=== PATIENT | female | born 1990 | race Caucasian/White ===

== ENCOUNTER 2018-08-03 11:02 | Outpatient (CLI) | payer OTHER ==
[2018-08-03 12:45] LABS: HGB - HEMOGLOBIN 10.9 g/dL (12.0-16.0); MEAN CORPUSCULAR HGB CONC 34.4 g/dL (32.0-36.0); MEAN CORPUSCULAR VOLUME 87.3 fL (81.0-99.0); MEAN PLATELET VOLUME 7.7 fL (7.9-10.8); RED BLOOD COUNT 3.61 10^6/uL (4.20-5.40); RED CELL DISTRIBUTION WIDTH 12.4 % (12.0-15.0); WHITE BLOOD COUNT 11.4 x10^3/uL (4.8-10.8)
[2018-08-04 12:11] LABS: HEPATITIS C ANTIBODY NON-REACTIVE (NON-REACTIVE)
== END 2018-08-03 11:03 | disposition home or self-care (01) ==
LOC: LAB 11:02
PROVIDERS: ATTEND Registered Nurse
DX: Z34.90 Encounter for supervision of normal pregnancy, unspecified, unspecified trimester (principal)
CPT/HCPCS: 36415; 82950; 85027; 86803; 86850

== ENCOUNTER 2018-08-06 07:38 | Outpatient (CLI) | payer OTHER | END 2018-08-06 07:39 | disposition home or self-care (01) | LOC: LAB 07:38 | PROVIDERS: ATTEND Registered Nurse | DX: O99.810 Abnormal glucose complicating pregnancy (principal) | CPT/HCPCS: 36415; 82951; 82952 ==

== ENCOUNTER 2018-09-23 08:00 | Outpatient (CLI) | payer OTHER | END 2018-09-23 23:59 | disposition home or self-care (01) | LOC: LAB.R 08:00 | PROVIDERS: ATTEND Registered Nurse | DX: R30.0 Dysuria (principal) | CPT/HCPCS: 87086; 87491; 87591 ==

== ENCOUNTER 2018-10-02 08:00 | Outpatient (CLI) | payer OTHER | END 2018-10-02 23:59 | disposition home or self-care (01) | LOC: LAB.R 08:00 | PROVIDERS: ATTEND Nurse Practitioner Obstetrics & Gynecology | DX: Z36.89 Encounter for other specified antenatal screening (principal); O98.213 Gonorrhea complicating pregnancy, third trimester; Z3A.00 Weeks of gestation of pregnancy not specified | CPT/HCPCS: 87491; 87591; 87797 ==

== ENCOUNTER 2018-10-09 08:00 | Outpatient (CLI) | payer OTHER | END 2018-10-09 23:59 | disposition home or self-care (01) | LOC: LAB.R 08:00 | PROVIDERS: ATTEND Registered Nurse | DX: O98.213 Gonorrhea complicating pregnancy, third trimester (principal) | CPT/HCPCS: 87491; 87591 ==

== ENCOUNTER 2018-10-12 09:58 | Outpatient (CLI) | payer OTHER ==
[2018-10-12 11:01] LABS: RUPTURE OF MEMBRANES PLUS NEGATIVE (NEGATIVE)
[2018-10-12 11:55] LABS: BILIRUBIN,URINE NEGATIVE (NEGATIVE); GLUCOSE, URINE (UA) NEGATIVE (NEGATIVE); KETONES,URINE (UA) NEGATIVE (NEGATIVE); LEUKOCYTE ESTERASE, URINE TRACE (NEGATIVE); NITRITE,URINE NEGATIVE (NEGATIVE); OCCULT BLOOD,URINE NEGATIVE (NEGATIVE); PH,URINE 7.5 PH (5.0-7.5); PROTEIN,URINE NEGATIVE (NEGATIVE); UROBILINOGEN,URINE 0.2 (NORMAL) E.U./dL (NORMAL)
[2018-10-12 11:56] LABS: BASOPHILS % (AUTO) 0.1 %; EOSINOPHILS % (AUTO) 0.3 %; HGB - HEMOGLOBIN 10.6 g/dL (12.0-16.0); LYMPHOCYTES # (AUTO) 2.1 10^3/uL (1.5-3.5); LYMPHOCYTES % (AUTO) 15.4 %; MEAN CORPUSCULAR HEMOGLOBIN 26.4 pg (27.0-31.0); MEAN CORPUSCULAR HGB CONC 33.1 g/dL (32.0-36.0); MEAN CORPUSCULAR VOLUME 79.9 fL (81.0-99.0); MEAN PLATELET VOLUME 7.6 fL (7.9-10.8); MONOCYTES # (AUTO) 0.9 10^3/uL (0.0-1.0); MONOCYTES % (AUTO) 6.9 %; NEUTROPHILS # (AUTO) 10.4 10^3/uL (1.5-6.6); NEUTROPHILS % (AUTO) 77.3 %; PLT - PLATELET COUNT 291 10^3/uL (130-450); RED BLOOD COUNT 4.01 10^6/uL (4.20-5.40); WHITE BLOOD COUNT 13.4 x10^3/uL (4.8-10.8)
[2018-10-12 11:56] LABS: CLARITY,URINE CLEAR (CLEAR)
[2018-10-12 12:01] LABS: BACTERIA,URINE Rare /HPF (None Seen); RBC,URINE None Seen /HPF (0-5); SQUAMOUS EPITHELIAL CELL,UR RARE Squamous (<= Few)
[2018-10-12 12:04] LABS: CREATININE 0.7 mg/dL (0.4-1.0)
[2018-10-12 12:07] LABS: URIC ACID 3.9 mg/dL (2.6-7.2)
[2018-10-12 12:08] VITALS: BP 134/88
[2018-10-12 13:06] LABS: CREATININE,URINE 28.9 mg/dL; TOTAL PROTEIN,URINE TIMED < 6 mg/dL
== END 2018-10-12 13:19 | disposition home or self-care (01) ==
LOC: WFO 09:58 → FBP 10:00 → WFO 13:19
PROVIDERS: ATTEND Nurse Practitioner Obstetrics & Gynecology
DX: O47.1 False labor at or after 37 completed weeks of gestation (principal); Z3A.37 37 weeks gestation of pregnancy
CPT/HCPCS: 36415; 59025; 81001; 82565; 82570; 83615; 84112; 84156; 84450; 84550; 85025; 87086

== ENCOUNTER 2018-10-20 02:39 | Inpatient (IN) | payer OTHER ==
[2018-10-20] MEDS ORDERED: fentaNYL 100 MCG/2 ML VIAL IVP PRN (05:14)
[2018-10-20] MEDS ORDERED: SODIUM CHLORIDE FLUSH 0.9% 10 ML SYRINGE IVP PRN (05:14)
[2018-10-20] MEDS ORDERED: ONDANSETRON 4 MG/2 ML VIAL IVP PRN ×2 (05:14→08:48)
[2018-10-20] MEDS ORDERED: OXYTOCIN/SODIUM CHLORIDE 500 ML IV SCH (06:00)
[2018-10-20 06:54] LABS: BASOPHILS % (AUTO) 0.2 %; EOSINOPHILS % (AUTO) 0.1 %; HGB - HEMOGLOBIN 9.8 g/dL (12.0-16.0); LYMPHOCYTES # (AUTO) 2.1 10^3/uL (1.5-3.5); LYMPHOCYTES % (AUTO) 12.5 %; MEAN CORPUSCULAR HGB CONC 32.7 g/dL (32.0-36.0); MEAN CORPUSCULAR VOLUME 79.4 fL (81.0-99.0); MEAN PLATELET VOLUME 7.8 fL (7.9-10.8); MONOCYTES # (AUTO) 1.1 10^3/uL (0.0-1.0); MONOCYTES % (AUTO) 6.7 %; NEUTROPHILS # (AUTO) 13.5 10^3/uL (1.5-6.6); NEUTROPHILS % (AUTO) 80.5 %; PLT - PLATELET COUNT 258 10^3/uL (130-450); RED BLOOD COUNT 3.76 10^6/uL (4.20-5.40); RED CELL DISTRIBUTION WIDTH 14.3 % (12.0-15.0); WHITE BLOOD COUNT 16.7 x10^3/uL (4.8-10.8)
[2018-10-20] MEDS: LACTATED RINGERS 1,000 ML IV SCH ×2 (07:48→14:09)
--- NOTE | 2018-10-20 07:57 | ANESTHESIA ---
Pre-Anesthesia VS, & Labs - Diagnosis desires labor analgesia - Procedure Labor epidural Vital Signs: Temp Pulse Resp BP Pulse Ox 36.8 C 75 20 134/82 H 100 10/20/18 03:22 10/20/18 05:08 10/20/18 05:08 10/20/18 05:08 10/20/18 05:08 Height 6 ft 1 in Weight (kg) 111.584 kg - NPO Other (patient instructed to be clear liquids from now till delivery) - Is Patient ?: Yes - Lab Results Current Lab Results: Laboratory Tests 10/20/18 06:14: WBC 16.7 H, RBC 3.76 L, Hgb 9.8 L, Hct 29.9 L, MCV 79.4 L, MCH 26.0 L, MCHC 32.7, RDW 14.3, Plt Count 258, MPV 7.8 L, Neut # (Auto) 13.5 H, Lymph # (Auto) 2.1, [place] # (Auto) 1.1 H, Eos # (Auto) 0.0, Baso # (Auto) 0.0, Absolute Nucleated RBC 0.00, Nucleated RBC % 0.0 Fish Bones: 10/20/18 06:14 Home Medications and Allergies Active Medications Acetaminophen (Tylenol) 650 mg PO Q6H HOSSEIN Fentanyl (Fentanyl) 50 mcg IVP Q1H PRN PRN Reason: PAIN Last Admin: 10/20/18 06:42 Dose: 50 mcg Lactated Ringer's (Lr) 1,000 mls @ 150 mls/hr IV .Q6H40M HOSSEIN Last Admin: 10/20/18 07:48 Dose: 150 mls/hr Oxytocin/Sodium Chloride (Pitocin/Sodium Chloride) 500 mls @ 1 mls/hr IV TITR HOSSEIN; Protocol Ondansetron HCl (Zofran Inj) 4 mg IVP Q4H PRN PRN Reason: Nausea / Vomiting Sodium Chloride (Normal Saline Flush 0.9%) 10 ml IVP PRN PRN PRN Reason: NEEDED PER PROVIDER ORDERS Sodium Chloride (Normal Saline Flush 0.9%) 10 ml IVP 0100,0900,1700 [facility] Allergies/Adverse Reactions: Allergies Allergy/AdvReac Type Severity Reaction Status Date / Time Penicillins Allergy Hives Verified 10/12/18 10:19 Anes History & Medical History - Anesthetic History Anesthesia Complications: reports: No previous complications - Medical History Cardiovascular: reports: None Pulmonary: reports: None Gastrointestinal: reports: GERD Neuro: reports: None Musculoskeletal: reports: None Exam General: Alert Dental: WNL Mouth Opening: Greater than 4 Fingerbreadths Neck Mobility: Normal Mallampati classification: II Thyromental Distance: greater than 6 cm Mental/Cognitive Status: Alert/Oriented X3 Plan Anesthesia Type: Epidural Consent for Procedure(s) Verified and Reviewed: Yes Code Status: Attempt Resuscitation ASA classification: 2-Mild systemic disease Is this case an emergency?: No
[2018-10-20] MEDS ORDERED: ROPIVACAINE 0.2% PF 20 ML AMPULE ONE (08:36)
[2018-10-20] MEDS ORDERED: fent/BUPIV 2 MCG/0.125% 250 ML EP ONE (08:37)
[2018-10-20] MEDS ORDERED: NALOXONE 0.4 MG/ML VIAL IVP PRN (08:48)
[2018-10-20] MEDS ORDERED: ePHEDrine 50 MG/ML VIAL IVP PRN (08:48)
[2018-10-20] MEDS ORDERED: METOCLOPRAMIDE 10 MG/2 ML VIAL IVP PRN (08:48)
[2018-10-20] MEDS ORDERED: fent/BUPIV 2 MCG/0.125% 250 ML EP PRN (08:48)
[2018-10-20] MEDS ORDERED: diphenhydrAMINE INJ 50 MG/ML VIAL IVP PRN (08:48)
[2018-10-20] MEDS ORDERED: NALBUPHINE 10 MG/ML AMP IVP PRN (08:48)
[2018-10-20] MEDS ORDERED: LACTATED RINGERS 500 ML IV ONE (08:48)
[2018-10-20] MEDS ORDERED: SODIUM CHLORIDE FLUSH 0.9% 10 ML SYRINGE IVP SCH (09:00)
--- NOTE | 2018-10-20 09:54 | HISTORY & PHYSICAL EXAMINATION ---
Admit History - Visit Reason Visit Reason: Contractions - : 3 Parity: 0 Premature: 0 Ectopic: 0 : 0 Care: positive: Valentino CORNELL (transfer of care @ 28 weeks' gestation) Risk/History: positive: None Complications This : positive: Other (gonorrhea) Smoking Status: Never smoker - Mother's Labs Mother's Blood Type: positive: A Mother's RH: positive: Positive GBS: positive: Group B Step Negative Rubella Status: positive: Immune Meds/Allgy - Allergies Allergies/Adverse Reactions: Allergies Allergy/AdvReac Type Severity Reaction Status Date / Time Penicillins Allergy Hives Verified 10/12/18 10:19 Review of Systems - Constitutional Constitutional: denies: Fatigue, Fever, Chills - Eyes Eyes: denies: Blurred vision, Spots in vision, Dipolpia - Cardiovascular Cariovascular: denies: Irregular heart rate, Palpitations, Chest pain, Edema - Respiratory Respiratory: denies: Cough, SOB at rest, SOB with exertion - Gastrointestinal Gastrointestinal: reports: Abdominal pain. denies: Constipation, Diarrhea, Nausea, Vomiting, Reflux/heartburn - Genitourinary Genitourinary: reports: Frequency. denies: Dysuria, Urgency - Musculoskeletal Musculoskeletal: reports: Back pain. denies: Muscle pain, Muscle aches - Integumentary Integumentary: denies: Rash, Pruritis, Lesions - Neurological Neurological: denies: General weakness, Focal weakness, Headache - Psychiatric Psychiatric: denies: Depression, Anxiety - All Other Systems All Other Systems: reports: Reviewed and negative Physical - Abdominal Exam Vital Signs: Temp Pulse Resp BP Pulse Ox 36.8 C 75 20 134/82 H 100 10/20/18 03:22 10/20/18 05:08 10/20/18 05:08 10/20/18 05:08 10/20/18 05:08 Contraction Frequency (min/apart): 2-3 minutes Contraction Intensity: positive: Moderate Uterine Resting Tone: positive: Soft - Monitoring Heart Rate Baseline: 135 Strip Review: positive: Category I - Presentation Presentation: positive: Vertex - Vaginal Exam Membranes: positive: Membranes intact Dilation (in cm): 5 Effacement (%): 100 Station: positive: -1 Cervical Position: positive: Anterior - Speculum Exam Speculum Exam Performed: positive: No Findings: negative: Gross leak - Other Notes Labor Progress Note/Additional Text: Breonna Urbina is a 27 y/o @ 38w5d by first trimester US who received consistent care t/o the course of her . She had an elevated 1-hr gtt @ 27 weeks' gestation, which was followed by a normal 3-hr gtt. Her screening labs were all otherwise WNL. She presented w/ a complaint of unusual vaginal discharge & dysuria @ 33 weeks' gestation & was screened for and diagnosed with gonorrhea niessiera @ that time. She received appropriate and adequate treatment for this bacterium & subsequently had negative COLLIN w/ repeated negative screening thereafter. She was screened for all other STIs in the first trimester and again in he 3rd trimester & her screening results were negative. The gonoccocal infection was the result of sexual contact w/ a new partner, which was isolated to a one-time event and did not recur. She presents today w/ strong uterine contractions w/ onset at 0100, progressively intensifying @ 0300. She wa seen in OB triage for an evaluation, where she was found to change her cervix by RN exam from 2cm to 4cm. She shortly thereafter requested and received epidural placement for management of her pain & is now comfortable & continuing to have spontaneous cervical change. PMH: Unremarkable PSH: D&C x2 under general anesthesia OBHx: SAB 1st trimester w/ D&C, no complications; TAB 1st trimester w/ D&C, no complications. 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; denies ETOH/tobacco/drugs; denies social stressors, good family support FamHx: Non-contributory PE: GEN: AAOx3 NAD [place] gravid female HEENT: grossly normocephalic, atraumatic RESP: cta b/l t/o CARDIAC: rrr nls1s2, no murmur ABD: gravid, NT, lie longitudinal, presentation cephalice, EFW 8# : No lesions, no exudate, SVE: 5/100/-1 anterior, BBOW MS: FROM t/o w/o deformity/erythema/edema SKIN: warm, well-perfused, c/d/i, no lesions, +tattooing NEURO: No focal deficit PSYCH: pleasantly conversant w/ normal mood & affect Plan for Labor - Plan For Labor I expect patient to be DC'd or transferred within 96 hours.: Yes Plan for Labor: 1. Reassess cervical status x4 hours, earlier PRN 2. Encouraged maternal rest, as she did not sleep overnight 3. Insert ferguson catheter to remain indwelling until 2nd stage labor 4. Reviewed plan of care w/ pt, friend & RN team @ bedside; all in agreement, without concerns.
[2018-10-20] MEDS ORDERED: miSOPROStol 200 MCG TABLET ONE (10:20)
[2018-10-20] MEDS ORDERED: LIDOCAINE-MPF 1% 30 ML VIAL ONE (10:20)
--- NOTE | 2018-10-20 16:40 | PROVIDER PROGRESS NOTE ---
Labor Progress Note - Uterine Monitoring Uterine Monitoring Mode: positive: External toco Contraction Frequency (min/apart): 2-5 Contraction Intensity: positive: Moderate to strong Uterine Resting Tone: positive: Soft - Monitoring Monitor Mode: positive: External ultrasound Heart Rate Baseline: 135 Heart Rate Variability: positive: Moderate (6-25 bmp) Accelerations: positive: Present, 15x15 Decelerations: positive: None Strip Review: positive: Category I - Vaginal Exam Dilation (in cm): 8 Effacement (%): 90 Station: -1 Cervical Position: Anterior - Labor Progress Note Labor Progress Note/Additional Text: S: Breonna is uncomfortable w/ her epidural in place; she is having significant discomfort on her R side only & feels very numb on her L side; mother & friend @ bedside, involved & supportive O: AAOx3, NAD [place] gravid female VSS EFM: BL 135bpm, +accels, no decels, mod dylon TOCO: UCs q2-5 minutes x 60-80 seconds, palp moderate SVE: 8/90/-1 BBOW AROMed for moderate CAF A: 27 y/o @ 38w5d by first trimester US, active spontaneous labor Progressive cervical change GBS negative, AROMed for CAF FHTs cat I Inadequate pain control w/ epidural anesthesia P: 1. Reviewed labor physiology, anticipatory guidance 2. Reviewed optimal maternal positioning to facilitate rotation & descent 3. Reassess cervical status x2-4 hours, earlier PRN 4. Anesthesia to evaluate pt to improve comfort 5. Reviewed plan of care w/ pt, family & RN team @ bedside; all in agreement, without concerns
[2018-10-20] MEDS ORDERED: OXYTOCIN 10 UNIT/ML VIAL IM ONE (17:56)
[2018-10-20] MEDS ORDERED: MAGNESIUM HYDROXIDE 2,400 MG/30 ML UDC PO PRN (17:56)
[2018-10-20] MEDS ORDERED: HYDROCORTISONE 1% CREAM 28 GM TUBE PR PRN (17:56)
[2018-10-20] MEDS ORDERED: WITCH HAZEL/GLYCERIN 1 EACH MED..PAD TOP PRN (17:56)
--- NOTE | 2018-10-20 18:04 | DELIVERY NOTE ---
Delivery Note - Labor Labor: positive: Spontaneous - Delivery Method Delivery Method: positive: Spontaneous vaginal delivery - Presentation Presentation: positive: Vertex, CHEMO - right occiput anterior - Nuchal Cord Nuchal Cord: positive: None - Anesthetic Anesthetic Type: - Amniotic Fluid Description Amniotic Fluid Description: positive: Clear - Episiotomy Type Episiotomy Type: positive: None - Laceration Laceration: positive: Vaginal - Suture Suture Type: positive: Vicryl Suture Size: positive: 2-0 - Delivery Outcome Delivery Outcome: positive: Livebirth - [place]: positive: Placed in direct skin contact with mother, Stimulated, Warmed, [place] used [place] sex: positive: Male - Cord Cord: positive: 3 vessels - Placenta Placenta: positive: Intact, Spontaneous - Estimated Blood Loss Estimated Blood Loss (in cc): 300 - Post Delivery Events Post Delivery Events: positive: No post delivery events - Delivery Comments (Free Text/Narrative) Delivery Comments (Free Text/Narrative): Breonna Urbina is a 27 y/o [id number] who presented in spontaneous active labor @ 38w5d. She received epidural anesthesia for pain management. She was electronically monitored t/o & FHTs were consistently cat I. She underwent AROM for CAF & progressed spontaneously to complete dilatation @ 1715, for a total 1st stage duration of 16 hours. She pushed w/ excellent expulsive effort & direction to viable male in CHEMO position over intact perineum @ 1743, for a total 2nd stage duration of 28 minutes. Infant vigorous w/ spontaneous, lusty cry. Placed to maternal abd for drying/stim. Delayed cord clamping until cessation of pulsation, then cord clamped x2 by CNM, cut by pt's mother; 3VC noted, cord blood obtained. Active management of the 3rd stage w/ Pitocin in IV fluids. Placenta del spont & intact, Alison, @ 1745, for a total 3rd stage duration of 2 minutes. FF @ U. Vagina & perineum inspected & 1st degree vaginal laceration noted; repaired under epidural anesthesia w/ 2 stitches of 2- 0 vicryl. Hemostatic & well-approximated. EBL 300mL. Mother & stable, planning to breastfeed. Infant nuzzling @ breast w/in 10 minutes of delivery.
[2018-10-20] MEDS: ACETAMINOPHEN 325 MG TABLET PO SCH (19:23)
[2018-10-20] MEDS: IBUPROFEN 800 MG TABLET PO SCH (19:23)
[2018-10-20] MEDS: DOCUSATE SODIUM 100 MG CAPSULE PO SCH (20:57)
[2018-10-21] MEDS: ACETAMINOPHEN 325 MG TABLET PO SCH ×4 (01:04→20:12)
[2018-10-21] MEDS: IBUPROFEN 800 MG TABLET PO SCH ×4 (01:04→20:12)
[2018-10-21] MEDS: DOCUSATE SODIUM 100 MG CAPSULE PO SCH ×2 (09:07→22:03)
--- NOTE | 2018-10-21 11:07 | PROVIDER PROGRESS NOTE ---
Subjective - Prog Note Date Prog Note Date: 10/21/18 Prog Note Time: 08:45 - Subjective Pt reports feeling: Improved Subjective: Breonna is doing well. She is ambulating & voiding w/o difficulty or discomfort. She denies incontinence. She is passing flatus & tolerating a regular diet. She reports adequate pain control w/ non-opioid analgesia. She is well w/ excellent sustained latch, although infant is modera tely sleepy. She feels tired but is otherwise doing well. Her mother intends to stay for another 2 weeks to assist her. Objective - Vital Signs/Intake & Output Reviewed Vital Signs: Yes Vital Signs: Vital Signs x48h Temp Pulse Resp BP BP Pulse Ox 10/21/18 07:00 37 C 71 18 121/73 10/21/18 04:08 36.9 C 65 16 102/52 L 100 Intake & Output: Intake & Output 10/18/18 10/19/18 10/20/18 10/21/18 23:59 23:59 23:59 23:59 Intake Total 2632.5 Output Total 550 0 Balance 2082.5 0 - Objective General Appearance: positive: No acute distress, Alert Eyes Bilateral: positive: Normal inspection, EOMI Respiratory: positive: Chest non-tender, No respiratory distress, Breath sounds nml Cardiovascular: positive: Regular rate & rhythm, No murmur Abdomen: positive: Non-tender, No distention, Other (FF U-2) Skin: positive: Color nml, No rash, Warm, Dry Extremities: positive: Non-tender, Full ROM, No pedal edema. negative: Calf tenderness, Nicola's sign/cords Neurologic/Psychiatric: positive: Oriented x3, CN's nml (2-12), Motor nml, Sensation nml, Mood/affect nml - Lab Results Fish Bones: 10/20/18 06:14 ABX Reporting Has patient been on IV antibiotics over the past 48 hours?: No Assessment/Plan - Problem List (1) (normal spontaneous vaginal delivery) Impression: 27 y/o [id number] s/p w/ vaginal laceration 10/20/2018, PPD #1, recovering well Normal uterine involution Minimal vaginal bleeding well Adequate pain control w/ non-opioid analgesia P: 1. continue routine pp care 2. support provided & to continue in ongoing fashion 3. Anticipate d/c home PPD#2
[2018-10-22] MEDS: IBUPROFEN 800 MG TABLET PO SCH ×3 (02:01→14:25)
[2018-10-22] MEDS: ACETAMINOPHEN 325 MG TABLET PO SCH ×3 (02:07→14:25)
[2018-10-22] MEDS: DOCUSATE SODIUM 100 MG CAPSULE PO SCH (08:07)
[2018-10-22 08:26] VITALS: BP 131/66
--- NOTE | 2018-10-22 09:29 | Discharge Plan ---
Discharge Plan Disposition: 01 Home, Self Care Condition: Good Diet: Regular Activity Restrictions: pelvic rest x6 weeks Shower Restrictions: No (No tub baths) Driving Restrictions: No Weight Bearing: Full Weight Instruction Topics: Vaginal After, Breastfeed How To, Exercises Kegel Additional Instructions or Follow Up instructions: x1 week w/ Abdirizak Carrasco CNM, aylin PRN No Smoking: If you smoke, Please STOP! Call for help. Follow-up with: Abdirizak Carrasoc CNM, NESSA [Provider Admit Priv/Credential] -
--- NOTE | 2018-10-22 09:31 | DISCHARGE SUMMARY ---
"Discharge Summary Admit Date: 10/20/18 Discharge Date: 10/22/18 Discharging Provider: stevo Code Status: Attempt Resuscitation Condition at Discharge: Good Discharge Disposition: 01 Home, Self Care Discharge Facility Name: [facility] - DIAGNOSES Admission Diagnoses: active spontaneous labor Discharge Diagnoses with Status of Each Condition: - HPI History of Present Illness: Breonna Urbina is a [id number] who presented @ 38w5d in active, spontaneous labor. She received epidural anesthesia for pain management & underwent AROM for CAF. She progressed w/o further intervention to complete dilatation & delivered a viable male infant vaginally w/ a vaginal laceration that was repaired w/ 2 stitches under epidural anesthesia w/o complication. - CONSULTS | PROCEDURES Consultations: anesthesia Procedures: epidural placement AROM repair of vaginal laceration - ALLERGIES Allergies/Adverse Reactions: Allergies Allergy/AdvReac Type Severity Reaction Status Date / Time Penicillins Allergy Hives Verified 10/12/18 10:19 - MEDICATIONS Home Medications: Ambulatory Orders Medication Instructions Recorded Confirmed Ibuprofen [Motrin] 800 mg PO Q6H tablet 10/22/18 - PHYSICAL EXAM AT DISCHARGE General Appearance: positive: No acute distress, Alert Respiratory: positive: Chest non-tender, No respiratory distress Cardiovascular: positive: Regular rate & rhythm, No murmur Abdomen: positive: Non-tender, No distention, Other (FF @ U-3) Skin: positive: Color nml, No rash, Warm, Dry Extremities: positive: Non-tender, Full ROM, Nml appearance, No pedal edema. negative: Calf tenderness, Nicola's sign/cords Neurologic/Psychiatric: positive: Oriented x3, CN's nml (2-12), Motor nml, Sensation nml, Mood/affect nml Physical Exam Other/Comments: Breast b/l s, nt; nipples b/l intact & everted; colostrum readily expressible - LABS Result Diagrams: 10/20/18 06:14 - FOLLOW UP Follow Up: x1 week w/ Abdirizak Carrasco CNM, earlier PRN - TIME SPENT Time Spent in Discharge (Minutes): 15"
[2018-10-22] MEDS ORDERED: MEASLES,MUMPS & RUBELLA VACC 0.5 ML VIAL SUBQ ONE (13:26)
--- NOTE | 2018-10-22 15:47 | Labor Flowsheet ---
Labor Flowsheet Datetime Report Generated by CPN: 10/22/2018 15:47 Datetime: 10/22/2018 08:19 VITAL SIGNS NBP Sys/Pebbles/Mean (mmHg): 131 : 66 : 82 Pulse: 68 LaborFlag: Labor Datetime: 10/21/2018 04:08 SpO2 (%): 100 Datetime: 10/20/2018 17:43 Stage 2 Comments: 1743 Datetime: 10/20/2018 17:32 STAGE 2 Pushing Position: Pushing with Contractions Pushing Progress: Descent with Pushing; Pushing Effectively with Contractions Datetime: 10/20/2018 17:29 UTERINE ACTIVITY Monitor Mode: Palpation Frequency (min): 2.5 Quality: Strong Pattern: Normal: <= 5 Contractions in 10 Minutes Resting Tone (Palpate): Relaxed ASSESSMENT A Monitor Mode: External US FHR Baseline Rate : 135 FHR Baseline Changes: No Baseline Change Variability: Minimal - Undetectable to <=5 bpm Accelerations: 15X15 Decelerations: Variable Category: Category II Comments: descent with pushing Datetime: 10/20/2018 17:27 I/O Interventions: Brown Discontinued Datetime: 10/20/2018 17:26 Membrane Comments: Provider here for delivery. Pushing restarted Datetime: 10/20/2018 17:10 VAGINAL EXAM Dilatation (cm): 10.0 Station: 1 Exam by: elizalde Vaginal Exam Comments: Provider notified of status. Will begin pushing Datetime: 10/20/2018 16:59 Temperature (C): 38.1 Duration (sec): 40 Pitocin Checklist: At Least 1 Acceleration of 15 bpm x 15 Seconds in 30 Minutes or Adequate Variabi lity TEACHING Instructional Method: Verbal Plan of Care: Plan of Care Discussed; Vaginal Delivery Labor/Induction: Pushing Methods COMMUNICATION Communication: RN Reviewed Strip Datetime: 10/20/2018 16:45 Monitor Interventions for UA: Vayas Adjusted Datetime: 10/20/2018 16:29 Patient Position/Activity: Left Extreme Datetime: 10/20/2018 16:18 PAIN Pain Scale: 5 Pain Presence: Intermittent Pain Type: Contraction Pain Relief Measures: Epidural Given Pain Coping: Breathing Through Contractions Datetime: 10/20/2018 16:15 Contraction Comments: Unable to trace. Pt on peanut ball on r side Datetime: 10/20/2018 16:14 Oxygen Method: Room Air Datetime: 10/20/2018 15:52 Pain Location: Abdomen Pain Assessment Comments: Anesthesia at bedside Vaginal Bleeding: None Cervix, Consistency: Soft Datetime: 10/20/2018 15:48 ANESTHESIA Anesthesia Plans: Epidural Epidural Procedure Other: Redose Anesthesia Level Check: T10- Umbilicus Datetime: 10/20/2018 15:31 Anesthesia Comments: Pump settings adjusting to 12 with 60ml bolus Datetime: 10/20/2018 15:30 Provider Notified (Name): Abdirizak Carrasco CNM Communication Comments: CNM helped RN locate labs from transfer records in the office charting Datetime: 10/20/2018 15:19 Effacement (%): 90 Membrane Status: Ruptured Membranes Ruptured Date/Time: 10/20/2018 15:19 Membranes Rupture Method: Artificial Amniotic Fluid Color: Clear Amniotic Fluid Amount: Moderate Amniotic Fluid Odor: None Cervix, Position: Anterior Datetime: 10/20/2018 14:11 PATIENT CARE IV/Blood Work: New IV Bag Hung; IV Bag Number @ 3 Datetime: 10/20/2018 13:26 Procedures: Sterile Vag Exam Datetime: 10/20/2018 12:30 Stage of : Labor Datetime: 10/20/2018 11:39 Respirations: 18 Datetime: 10/20/2018 11:14 Temperature Route: Oral Datetime: 10/20/2018 10:57 MATERNAL ASSESSMENT Headache: Denies Nausea/Vomiting: Denies RUQ Epigastric Pain: Denies Datetime: 10/20/2018 09:43 Hygiene: Ami Care Datetime: 10/20/2018 08:19 Epidural Procedure: Loading Dose Datetime: 10/20/2018 08:00 Comfort Measures: Breathing/Relaxation Datetime: 10/20/2018 07:56 PROCEDURE TIME OUT Procedure Verify: Correct Patient Identity; Accurate Procedure Consent Form; Agreement on Procedure to be Done; Correct Patient Position Epidural Positioning: Sitting Datetime: 10/20/2018 07:38 Patient Care Comments: Assist to BR Datetime: 10/20/2018 06:42 MEDICATIONS Analgesics/Sedatives: Fentanyl (mcg) @ Medication Comments: Fentanyl 50 mcg at 0642 IV
== END 2018-10-22 15:45 | disposition home or self-care (01) | DRG 807 ==
LOC: WFO 02:39 → FBP 02:40 → WFO 05:10 → FBP 05:15
PROVIDERS: ADMIT Registered Nurse; ATTEND Registered Nurse
PROC: 10E0XZZ Delivery of Products of Conception, External Approach (ICD-10-PCS; principal; 2018-10-20)
PROC: 10907ZC Drainage of Amniotic Fluid, Therapeutic from Products of Conception, Via Natural or Artificial Opening (ICD-10-PCS; 2018-10-20)
PROC: 0HQ9XZZ Repair Perineum Skin, External Approach (ICD-10-PCS; 2018-10-20)
DX: O70.0 First degree perineal laceration during delivery (principal); Z37.0 Single live birth; Z3A.38 38 weeks gestation of pregnancy; Z86.19 Personal history of other infectious and parasitic diseases
CPT/HCPCS: 85025; 99213

== ENCOUNTER 2019-02-13 00:55 | Outpatient (CLI) | payer OTHER | END 2019-02-13 00:56 | disposition critical access hospital (66) | LOC: EMS 00:55 | PROVIDERS: ATTEND Surgery | DX: R07.9 Chest pain, unspecified (principal) | CPT/HCPCS: A0425; A0427 ==

== ENCOUNTER 2019-02-13 01:12 | Emergency (ER) | payer OTHER ==
--- NOTE | 2019-02-13 01:20 | ED Physician Documentation ---
PD HPI CHEST PAIN - Stated complaint Stated Complaint: CP - Chief complaint Chief Complaint: Cardiac - History obtained from History obtained from: Patient - History of Present Illness Timing - onset: How many hours ago (7) Timing - onset during: Rest Timing - details: Still present Pain level max: 4 Pain level now: 2 Quality: Sharp Location: Substernal, Left chest Radiation: No: Jaw, Neck, Back, Abdominal, Left upper extremity, Right upper extremity Improved by: Nothing Worsened by: Inspiration Associated symptoms: No: Shortness of air, Diaphoresis, Nausea, Vomiting, Feeling faint / dizzy, General Weakness, Palpitations, Cough Similar symptoms before: Has not had sx before Recently seen: Not recently seen - Additional information Additional information: no recent travel or surgery. Review of Systems Constitutional: denies: Fever, Chills Nose: reports: Rhinorrhea / runny nose Respiratory: reports: Cough. denies: Dyspnea, Wheezing : denies: Dysuria Skin: denies: Rash, Abrasion (s) Musculoskeletal: denies: Neck pain, Back pain PD PAST MEDICAL HISTORY - Past Medical History Cardiovascular: None Respiratory: None Neuro: None GI: GERD Musculoskeletal: None - Present Medications Home Medications: Ambulatory Orders Medication Instructions Recorded Confirmed Meloxicam [Mobic] 15 mg PO DAILY PRN #20 tablet 02/13/19 - Allergies Allergies/Adverse Reactions: Allergies Allergy/AdvReac Type Severity Reaction Status Date / Time Penicillins Allergy Hives Verified 02/13/19 01:16 - Social History Smoking Status: Never smoker PD ED PE NORMAL - Vitals Vital signs reviewed: Yes - General General: Alert and oriented X 3, No acute distress, Well developed/nourished - HEENT HEENT: PERRL, Ears normal, Moist mucous membranes, Pharynx benign - Neck Neck: Supple, no meningeal sign - Cardiac Cardiac: RRR, No murmur, Strong equal pulses - Respiratory Respiratory: No respiratory distress, Clear bilaterally - Abdomen Abdomen: Soft, Non tender, Non distended - Derm Derm: Warm and dry - Extremities Extremities: No edema, No calf tenderness / cord - Neuro Neuro: Alert and oriented X 3 - Psych Psych: Normal mood, Normal affect - Free text exam Free text exam: TTP across the anterior chest wall. Reproduces pain. Results - Vitals Vitals: Vital Signs - 24 hr 02/13/19 02/13/19 02/13/19 01:13 01:16 02:08 Temperature 36.6 C Heart Rate 71 62 66 Respiratory 16 16 14 Rate Blood Pressure 132/90 H 132/90 H 127/81 H O2 Saturation 99 100 98 Oxygen O2 Source Room air - EKG (time done) 0133 Rate: Rate (enter#) (67) Rhythm: NSR [place]: Normal Intervals: Normal [place] QRS: Normal Ischemia: Normal ST segments - Labs Labs: Laboratory Tests 02/13/19 02/13/19 02/13/19 01:25 01:25 01:25 WBC 10.6 RBC 4.35 Hgb 11.2 L Hct 34.3 L MCV 78.8 L MCH 25.7 L MCHC 32.6 RDW 13.9 Plt Count 383 MPV 7.8 L Neut # (Auto) 7.8 H Lymph # (Auto) 1.9 [place] # (Auto) 0.6 Eos # (Auto) 0.1 Baso # (Auto) 0.1 Absolute Nucleated RBC 0.00 Nucleated RBC % 0.0 D-Dimer Sodium 140 Potassium 3.1 L Chloride 107 Carbon Dioxide 23 Anion Gap 10.0 BUN 15 Creatinine 0.9 Estimated GFR (MDRD) 76 L Glucose 125 H Calcium 8.7 Total Bilirubin 0.6 AST 24 ALT 15 Alkaline Phosphatase 57 Troponin I < 0.04 Total Protein 6.8 Albumin 3.7 Globulin 3.1 Albumin/Globulin Ratio 1.2 Lipase 55 H 02/13/19 01:25 WBC RBC Hgb Hct MCV MCH MCHC RDW Plt Count MPV Neut # (Auto) Lymph # (Auto) [place] # (Auto) Eos # (Auto) Baso # (Auto) Absolute Nucleated RBC Nucleated RBC % D-Dimer 227.5 Sodium Potassium Chloride Carbon Dioxide Anion Gap BUN Creatinine Estimated GFR (MDRD) Glucose Calcium Total Bilirubin AST ALT Alkaline Phosphatase Troponin I Total Protein Albumin Globulin Albumin/Globulin Ratio Lipase - Rads (name of study) cxr Radiology: Prelim report reviewed, EMP read contemporaneously, See rad report (normal) PD MEDICAL DECISION MAKING - ED course Complexity details: reviewed results, re-evaluated patient, considered differential, d/w patient ED course: 28-year-old female with what appears to be costochondritis. No evidence of pulmonary embolism, aortic dissection or acute coronary syndrome. Symptoms resolved with Toradol. No acute findings on EKG. No evidence of myocarditis or pericarditis. We will continue supportive care and follow-up with her doctor. Patient counseled regarding signs and symptoms for which I believe and urgent re-evaluation would be necessary. Patient with good understanding of and agreement to plan and is comfortable going home at this time This document was made in part using voice recognition software. While efforts are made to proofread this document, sound alike and grammatical errors may occur. Departure - Departure Disposition: 01 Home, Self Care Clinical Impression: Costochondritis, acute Chest pain Qualifiers: Chest pain type: unspecified Qualified Code(s): R07.9 - Chest pain, unspecified Condition: Good Instructions: ED Chest Pain Costochondritis Follow-Up: your,doctor in 1 week [Other] Prescriptions: Meloxicam [Mobic] 15 mg PO DAILY PRN #20 tablet PRN Reason: pain Comments: The cause of your symptoms is unclear but may be related to inflammation in the cartilage of your ribs. Take the medication as prescribed and follow-up with your doctor for further care. Discharge Date/Time: 02/13/19 02:20
[2019-02-13 01:30] LABS: BASOPHILS # (AUTO) 0.1 10^3/uL (0.0-0.1); BASOPHILS % (AUTO) 1.4 %; EOSINOPHILS # (AUTO) 0.1 10^3/uL (0.0-0.7); EOSINOPHILS % (AUTO) 0.7 %; HGB - HEMOGLOBIN 11.2 g/dL (12.0-16.0); LYMPHOCYTES # (AUTO) 1.9 10^3/uL (1.5-3.5); LYMPHOCYTES % (AUTO) 18.4 %; MEAN CORPUSCULAR HEMOGLOBIN 25.7 pg (27.0-31.0); MEAN CORPUSCULAR HGB CONC 32.6 g/dL (32.0-36.0); MEAN CORPUSCULAR VOLUME 78.8 fL (81.0-99.0); MEAN PLATELET VOLUME 7.8 fL (7.9-10.8); MONOCYTES # (AUTO) 0.6 10^3/uL (0.0-1.0); MONOCYTES % (AUTO) 6.1 %; NEUTROPHILS # (AUTO) 7.8 10^3/uL (1.5-6.6); NEUTROPHILS % (AUTO) 73.4 %; PLT - PLATELET COUNT 383 10^3/uL (130-450); RED BLOOD COUNT 4.35 10^6/uL (4.20-5.40); RED CELL DISTRIBUTION WIDTH 13.9 % (12.0-15.0); WHITE BLOOD COUNT 10.6 x10^3/uL (4.8-10.8)
[2019-02-13] MEDS ORDERED: KETOROLAC 30 MG/ML VIAL IVP STA (01:31)
[2019-02-13 01:43] LABS: ALBUMIN 3.7 g/dL (3.2-5.5); ALBUMIN/GLOBULIN RATIO 1.2 (1.0-2.2); BILIRUBIN,TOTAL 0.6 mg/dL (0.2-1.0); CALCIUM 8.7 mg/dL (8.5-10.3); CREATININE 0.9 mg/dL (0.4-1.0); TOTAL PROTEIN 6.8 g/dL (6.7-8.2)
--- NOTE | 2019-02-13 02:07 | XRAY Report ---
Reason: Chest Pain Procedure Date: 02/13/2019 Accession Number: [id number] / [id number] Procedure: XR - Chest 1 View X-Ray CPT Code: 28373 FULL RESULT: EXAM: CHEST RADIOGRAPHY EXAM DATE: 02/13/2019 01:46 AM. CLINICAL HISTORY: Chest pain and shortness of breath. Productive cough. COMPARISON: None. TECHNIQUE: 1 view. FINDINGS: Lungs/Pleura: No alveolar consolidation or pleural effusion seen. No pneumothorax. Mediastinum: Within exam limitations, the cardiomediastinal contour is normal. Other: None. IMPRESSION: 1. No acute abnormality seen in the chest. RADIA
[2019-02-13 02:08] VITALS: BP 127/81
== END 2019-02-13 02:20 | disposition home or self-care (01) ==
LOC: EDUNIT# → ED 01:12
DX: M94.0 Chondrocostal junction syndrome [Tietze] (principal)
CPT/HCPCS: 36415; 71045; 80053; 83690; 84484; 85025; 85379; 93005; 96374; 99283; 99284

== ENCOUNTER 2019-03-03 07:02 | Emergency (ER) | payer OTHER ==
[2019-03-03] MEDS ORDERED: MAG HYDROX/AL HYDROX/SIMETH 30 ML UDC PO STA (07:21)
[2019-03-03] MEDS ORDERED: LIDOCAINE VISCOUS 2% 15 ML UDC MM STA (07:21)
--- NOTE | 2019-03-03 07:25 | ED Physician Documentation ---
PD HPI CHEST PAIN - Stated complaint Stated Complaint: CHEST PAIN - Chief complaint Chief Complaint: Cardiac - History obtained from History obtained from: Patient - History of Present Illness Timing - onset: Last night Timing - onset during: Rest Timing - details: Still present Pain level max: 10 Pain level now: 7 Quality: Pain Location: Substernal Radiation: Other (RUQ) Worsened by: Inspiration Associated symptoms: Shortness of air, Nausea Similar symptoms before: Diagnosis (Similar episode 2 weeks ago was diagnosed as costochondritis.) Recently seen: Emergency Dept (2 weeks ago.) - Additional information Additional information: The patient is a 28-year-old active [employer] [place] female who presents with substernal chest pain that started last night and continues this morning. It was worse at onset, rated at 10 out of 10 in severity. Currently she rates that about 7 out of 10 in severity. She reports associated shortness of breath and nausea at onset, without vomiting or diaphoresis. The pain is worse with inspiratory effort. She reports history of similar episode 2 weeks ago. She was seen here at that time and was diagnosed with possible costochondritis. There is no history of recent travel or surgery. She denies cough or fever. Review of Systems Constitutional: denies: Fever, Fatigue Ears: denies: Tinnitus/ringing Nose: denies: Congestion Throat: denies: Sore throat Cardiac: reports: Chest pain / pressure. denies: Palpitations Respiratory: reports: Dyspnea. denies: Cough GI: reports: Nausea. denies: Abdominal Pain, Vomiting : denies: Dysuria Skin: denies: Rash Musculoskeletal: denies: Back pain, Extremity pain Neurologic: denies: Focal weakness, Numbness, Headache PD PAST MEDICAL HISTORY - Past Medical History Cardiovascular: None Respiratory: None Neuro: None GI: GERD Musculoskeletal: None - Past Surgical History Past Surgical History: No - Present Medications Home Medications: Ambulatory Orders Medication Instructions Recorded Confirmed Meloxicam [Mobic] 15 mg PO DAILY PRN #20 tablet 02/13/19 Ranitidine HCl [Acid Control] 150 mg PO BID #30 tablet 03/03/19 - Allergies Allergies/Adverse Reactions: Allergies Allergy/AdvReac Type Severity Reaction Status Date / Time Penicillins Allergy Hives Verified 03/03/19 07:12 - Social History Does the pt smoke?: No Smoking Status: Never smoker Does the pt drink ETOH?: No Does the pt have substance abuse?: No - Immunizations Immunizations: TDAP current <10years - POLST Patient has POLST: No PD ED PE NORMAL - Vitals Vital signs reviewed: Yes (Borderline hypertension initially.) - General General: Alert and oriented X 3, Well developed/nourished - HEENT HEENT: Atraumatic, Pharynx benign - Neck Neck: No adenopathy, No JVD - Cardiac Cardiac: RRR, No murmur - Respiratory Respiratory: No respiratory distress, Clear bilaterally - Abdomen Abdomen: Soft, Non distended, Other (Mild tenderness to palpation in the epigastric region, without rebound or guarding.) - Back Back: No CVA TTP - Derm Derm: No rash - Extremities Extremities: No edema, No calf tenderness / cord - Neuro Neuro: Alert and oriented X 3, No motor deficit, No sensory deficit Results - Vitals Vitals: Vital Signs - 24 hr 03/03/19 03/03/19 07:09 07:50 Temperature 36.6 C Heart Rate 75 67 Respiratory 16 16 Rate Blood Pressure 149/89 H 136/74 H O2 Saturation 100 100 Oxygen O2 Source Room air - EKG (time done) 07:04 Rate: Rate (enter#) (66) Rhythm: NSR [place]: Normal Intervals: Normal CT QRS: Normal Ischemia: Normal ST segments - Labs Labs: Laboratory Tests 03/03/19 03/03/19 03/03/19 08:05 08:05 08:05 WBC 5.5 RBC 4.60 Hgb 11.4 L Hct 37.8 MCV 82.2 MCH 24.8 L MCHC 30.2 L RDW 13.9 Plt Count 283 MPV 10.1 Neut # (Auto) 3.9 Lymph # (Auto) 0.9 L [place] # (Auto) 0.6 Eos # (Auto) 0.0 Baso # (Auto) 0.0 Absolute Nucleated RBC 0.00 Nucleated RBC % 0.0 D-Dimer Sodium 136 Potassium 4.4 Chloride 102 Carbon Dioxide 23 Anion Gap 11.0 BUN 13 Creatinine 0.8 Estimated GFR (MDRD) 87 L Glucose 124 H Calcium 8.9 Total Bilirubin 1.8 H AST 638 H ALT 380 H Alkaline Phosphatase 98 Troponin I < 0.04 Total Protein 7.2 Albumin 3.9 Globulin 3.3 Albumin/Globulin Ratio 1.2 Lipase 58 H 03/03/19 08:16 WBC RBC Hgb Hct MCV MCH MCHC RDW Plt Count MPV Neut # (Auto) Lymph # (Auto) [place] # (Auto) Eos # (Auto) Baso # (Auto) Absolute Nucleated RBC Nucleated RBC % D-Dimer 232.8 Sodium Potassium Chloride Carbon Dioxide Anion Gap BUN Creatinine Estimated GFR (MDRD) Glucose Calcium Total Bilirubin AST ALT Alkaline Phosphatase Troponin I Total Protein Albumin Globulin Albumin/Globulin Ratio Lipase - Rads (name of study) CXR Radiology: Prelim report reviewed, EMP read contemporaneously, See rad report (Normal single view chest.) PD MEDICAL DECISION MAKING - ED course Complexity details: reviewed old records, reviewed results, re-evaluated patient, considered differential, d/w patient ED course: The patient's presentation is most consistent with gastroesophageal reflux disease. I do not think her presentation represents cardiac ischemia, pulmonary embolus, and there is no evidence of pneumonia or pneumothorax on chest x-ray. Treatment in the emergency department included administration of GI cocktail orally, and famotidine 10 mg IV. Her symptoms completely resolved with the above treatment. She is being discharged with prescription for ranitidine. I advised that she discontinue anti-inflammatory medication at least temporarily. I discussed with her the diagnosis, outpatient treatment and follow-up, as well as potentially worrisome signs or symptoms that should prompt reevaluation in the emergency department. Departure - Departure Disposition: 01 Home, Self Care Clinical Impression: Gastroesophageal reflux disease Condition: Stable Health Concerns: chest pain Plan of Treatment: ranitidine Care Goals: relief of symptoms Assessment: see above Instructions: ED GERD Follow-Up: [facility] [Primary Care Provider] - Prescriptions: Ranitidine HCl [Acid Control] 150 mg PO BID #30 tablet Comments: Take ranitidine twice daily as prescribed. You can use liquid antacid, such as Maalox or Mylanta if you develop recurrent symptoms. Minimize coffee, jazmin, alcohol. Follow-up with your primary physician within 2 weeks. Call to schedule an appointment. Return to the emergency department if you develop increasing chest pain, shortness of breath, or otherwise worsening symptoms.
[2019-03-03] MEDS ORDERED: FAMOTIDINE 20 MG/2 ML VIAL IVP STA (08:06)
[2019-03-03 08:37] LABS: BASOPHILS % (AUTO) 0.5 %; EOSINOPHILS % (AUTO) 0.2 %; HGB - HEMOGLOBIN 11.4 g/dL (12.0-16.0); LYMPHOCYTES # (AUTO) 0.9 10^3/uL (1.5-3.5); LYMPHOCYTES % (AUTO) 16.4 %; MEAN CORPUSCULAR HEMOGLOBIN 24.8 pg (27.0-31.0); MEAN CORPUSCULAR HGB CONC 30.2 g/dL (32.0-36.0); MEAN CORPUSCULAR VOLUME 82.2 fL (81.0-99.0); MEAN PLATELET VOLUME 10.1 fL (7.9-10.8); MONOCYTES # (AUTO) 0.6 10^3/uL (0.0-1.0); MONOCYTES % (AUTO) 10.7 %; NEUTROPHILS # (AUTO) 3.9 10^3/uL (1.5-6.6); NEUTROPHILS % (AUTO) 71.8 %; PLT - PLATELET COUNT 283 10^3/uL (130-450); RED CELL DISTRIBUTION WIDTH 13.9 % (12.0-15.0); WHITE BLOOD COUNT 5.5 x10^3/uL (4.8-10.8)
[2019-03-03 08:49] LABS: ALBUMIN 3.9 g/dL (3.2-5.5); ALBUMIN/GLOBULIN RATIO 1.2 (1.0-2.2); BILIRUBIN,TOTAL 1.8 mg/dL (0.2-1.0); CALCIUM 8.9 mg/dL (8.5-10.3); CREATININE 0.8 mg/dL (0.4-1.0); TOTAL PROTEIN 7.2 g/dL (6.7-8.2)
--- NOTE | 2019-03-03 08:59 | XRAY Report ---
Reason: chest pain Procedure Date: 03/03/2019 Accession Number: [id number] / [id number] Procedure: XR - Chest 1 View X-Ray CPT Code: 11551 FULL RESULT: EXAM: CHEST RADIOGRAPHY EXAM DATE: 03/03/2019 08:33 AM. CLINICAL HISTORY: Chest pain. COMPARISON: CHEST 1 VIEW 02/13/2019 1:30 AM. TECHNIQUE: 1 view. FINDINGS: Lungs/Pleura: No focal opacities evident. No pleural effusion. No pneumothorax. Mediastinum: Within exam limitations, the cardiomediastinal contour is normal. Other: No acute osseous abnormality. IMPRESSION: Normal single view chest. RADIA
[2019-03-03 09:34] VITALS: BP 123/85
== END 2019-03-03 09:34 | disposition home or self-care (01) ==
LOC: ED 07:02
DX: K21.9 Gastro-esophageal reflux disease without esophagitis (principal)
CPT/HCPCS: 36415; 71045; 80053; 83690; 84484; 85025; 85379; 93005; 96374; 99283; A9270

== ENCOUNTER 2019-08-21 02:42 | Outpatient (CLI) | payer OTHER | END 2019-08-21 02:43 | disposition critical access hospital (66) | LOC: EMS 02:42 | PROVIDERS: ATTEND Surgery | DX: R07.1 Chest pain on breathing (principal); R10.10 Upper abdominal pain, unspecified | CPT/HCPCS: A0425; A0427 ==

== ENCOUNTER 2019-08-21 03:02 | Emergency (ER) | payer OTHER ==
--- NOTE | 2019-08-21 04:06 | ED Physician Documentation ---
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 similar symptoms in February, was T+R twice that month from this ED without obvious cause although her LFTs had significant change between those visits. She says she followed up at [facility] and eventually had upper endoscopy which revealed Barett's esophagus Review of Systems Constitutional: denies: Fever, Chills, Sweats Cardiac: reports: Reviewed and negative Respiratory: reports: Reviewed and negative GI: reports: Abdominal Pain, Nausea. denies: Vomiting, Constipation, Diarrhea PD PAST MEDICAL HISTORY - Past Medical History Past Medical History: Yes Cardiovascular: None Respiratory: None Neuro: None GI: GERD Musculoskeletal: None - Past Surgical History Past Surgical History: No - Present Medications Home Medications: Ambulatory Orders Medication Instructions Recorded Confirmed Meloxicam [Mobic] 15 mg PO DAILY PRN #20 tablet 02/13/19 Ranitidine HCl [Acid Control] 150 mg PO BID #30 tablet 03/03/19 Ondansetron Odt [Zofran] 4 mg TL Q6H PRN #10 tablet 08/21/19 oxyCODONE [Roxicodone] 5 - 10 mg PO Q6H PRN #14 tablet 08/21/19 - Allergies Allergies/Adverse Reactions: Allergies Allergy/AdvReac Type Severity Reaction Status Date / Time Penicillins Allergy Hives Verified 03/03/19 07:12 - Social History Does the pt smoke?: No Smoking Status: Never smoker Does the pt drink ETOH?: No Does the pt have substance abuse?: No - Immunizations Immunizations: TDAP current <10years - POLST Patient has POLST: No PD ED PE NORMAL - Vitals Vital signs reviewed: Yes - General General: Alert and oriented X 3, Well developed/nourished, Other (appears to be in mild/moderate painful distress ) - HEENT HEENT: Moist mucous membranes - Cardiac Cardiac: RRR, No murmur - Respiratory Respiratory: No respiratory distress, Clear bilaterally - Abdomen Abdomen: Soft, Non distended, Other (mild epigastric tenderness without rebound or guarding) - Back Back: No CVA TTP - Derm Derm: Normal color, Warm and dry, No rash Results - Vitals Vitals: Vital Signs - 24 hr 08/21/19 08/21/19 08/21/19 03:07 05:21 06:16 Temperature 36.9 C Heart Rate 63 62 62 Respiratory 16 18 14 Rate Blood Pressure 120/83 H 120/64 126/70 O2 Saturation 100 100 97 Oxygen O2 Source Room air - Labs Labs: Laboratory Tests 08/21/19 08/21/19 05:25 05:25 WBC 13.9 H RBC 4.71 Hgb 11.5 L Hct 37.4 MCV 79.4 L MCH 24.4 L MCHC 30.7 L RDW 15.2 H Plt Count 328 MPV 9.1 Neut # (Auto) 11.7 H Lymph # (Auto) 1.3 L [place] # (Auto) 0.8 Eos # (Auto) 0.0 Baso # (Auto) 0.1 Absolute Nucleated RBC 0.00 Nucleated RBC % 0.0 Sodium 140 Potassium 3.9 Chloride 106 Carbon Dioxide 26 Anion Gap 8.0 BUN 21 H Creatinine 0.9 Estimated GFR (MDRD) 76 L Glucose 119 H Calcium 8.6 Total Bilirubin 0.6 AST 77 H ALT 39 Alkaline Phosphatase 54 Total Protein 7.2 Albumin 3.8 Globulin 3.4 Albumin/Globulin Ratio 1.1 Lipase 45 - Rads (name of study) RUQ US Radiology: Prelim report reviewed, See rad report PD MEDICAL DECISION MAKING - ED course Complexity details: reviewed old records, reviewed results, re-evaluated patient, considered differential, d/w patient ED course: gallstones noted on US. reassuring blood tests today and symptoms adequately controlled prior to discharge. Instructed to return if worse, f/u with PMD (ideally, general surgery, but might require referral from PMD) even if symptoms resolve Departure - Departure Disposition: 01 Home, Self Care Clinical Impression: Biliary colic Condition: Good Instructions: ED Gallstone W Biliary Colic Follow-Up: ASH[facility] TEJEDA [Primary Care Provider] - Frank Villanueva MD [Provider Admit Priv/Credential] - Prescriptions: Ondansetron Odt [Zofran] 4 mg TL Q6H PRN #10 tablet PRN Reason: Nausea / Vomiting oxyCODONE [Roxicodone] 5 - 10 mg PO Q6H PRN #14 tablet PRN Reason: Pain Discharge Date/Time: 08/21/19 06:24
[2019-08-21 05:32] LABS: BASOPHILS # (AUTO) 0.1 10^3/uL (0.0-0.1); BASOPHILS % (AUTO) 0.4 %; EOSINOPHILS % (AUTO) 0.1 %; HGB - HEMOGLOBIN 11.5 g/dL (12.0-16.0); LYMPHOCYTES # (AUTO) 1.3 10^3/uL (1.5-3.5); MEAN CORPUSCULAR HEMOGLOBIN 24.4 pg (27.0-31.0); MEAN CORPUSCULAR HGB CONC 30.7 g/dL (32.0-36.0); MEAN CORPUSCULAR VOLUME 79.4 fL (81.0-99.0); MEAN PLATELET VOLUME 9.1 fL (7.9-10.8); MONOCYTES # (AUTO) 0.8 10^3/uL (0.0-1.0); MONOCYTES % (AUTO) 5.8 %; NEUTROPHILS # (AUTO) 11.7 10^3/uL (1.5-6.6); NEUTROPHILS % (AUTO) 84.1 %; PLT - PLATELET COUNT 328 10^3/uL (130-450); RED BLOOD COUNT 4.71 10^6/uL (4.20-5.40); RED CELL DISTRIBUTION WIDTH 15.2 % (12.0-15.0); WHITE BLOOD COUNT 13.9 x10^3/uL (4.8-10.8)
--- NOTE | 2019-08-21 05:38 | Ultrasound Report ---
Reason: RUQ pain Procedure Date: 08/21/2019 Accession Number: [id number] / [id number] Procedure: US - Abdomen Limited CPT Code: Final Report FULL RESULT: EXAM: ABDOMEN ULTRASOUND LIMITED, RUQ EXAM DATE: 08/21/2019 05:05 AM. CLINICAL HISTORY: RUQ pain. COMPARISON: None. TECHNIQUE: Real-time scanning was performed with static images obtained. FINDINGS: Liver: Diffusely increased in echogenicity. Normal in size measuring 5.2 cm. Main portal vein flow: Hepatopetal. Gallbladder: Stones in the gallbladder lumen. No wall thickening or sonographic Pizarro's sign. Biliary System: CBD measures 7 mm. No intrahepatic ductal dilatation. Other: Normal right kidney without hydronephrosis. IMPRESSION: 1. Cholelithiasis. No sonographic finding of cholecystitis. 2. Mild dilatation of the common bile duct with no obstructing lesion/stone seen. RADIA
[2019-08-21 05:45] LABS: ALBUMIN 3.8 g/dL (3.2-5.5); ALBUMIN/GLOBULIN RATIO 1.1 (1.0-2.2); BILIRUBIN,TOTAL 0.6 mg/dL (0.2-1.0); CALCIUM 8.6 mg/dL (8.5-10.3); CREATININE 0.9 mg/dL (0.4-1.0); TOTAL PROTEIN 7.2 g/dL (6.7-8.2)
[2019-08-21] MEDS ORDERED: ONDANSETRON 4 MG/2 ML VIAL IVP STA (05:59)
[2019-08-21] MEDS ORDERED: oxyCODONE 5 MG TABLET PO STA (05:59)
[2019-08-21 06:16] VITALS: BP 126/70
== END 2019-08-21 06:24 | disposition home or self-care (01) ==
LOC: EDUNIT# → ED 03:02
DX: K80.20 Calculus of gallbladder without cholecystitis without obstruction (principal); K22.70 Barrett's esophagus without dysplasia; K21.9 Gastro-esophageal reflux disease without esophagitis
CPT/HCPCS: 36415; 76705; 80053; 83690; 85025; 96374; 99284; A9270

== ENCOUNTER 2019-09-25 12:15 | Emergency (ER) | payer OTHER ==
[2019-09-25 12:24] VITALS: BP 142/78
--- NOTE | 2019-09-25 12:47 | ED Physician Documentation ---
History of Present Illness - Stated complaint Stated Complaint: SORE THROAT - Chief complaint Chief Complaint: Heent - Additonal information Additional information: This is a 28-year-old female presents with 3 days of sore throat, cough, fever, body aches. She did receive a flu shot this year. She denies any vomiting or abdominal pain. He had a measured fever earlier, none today No dysuria. No shortness of breath. Her son is also been sick with somewhat similar symptoms. Review of Systems Constitutional: reports: Fever Throat: reports: Sore throat Respiratory: reports: Cough GI: denies: Abdominal Pain PD PAST MEDICAL HISTORY - Past Medical History Cardiovascular: None Respiratory: None Neuro: None GI: GERD Musculoskeletal: None - Past Surgical History Past Surgical History: No - Present Medications Home Medications: Ambulatory Orders Medication Instructions Recorded Confirmed Meloxicam [Mobic] 15 mg PO DAILY PRN #20 tablet 02/13/19 raNITIdine HCl [Acid Control] 150 mg PO BID #30 tablet 03/03/19 Ondansetron Odt [Zofran] 4 mg TL Q6H PRN #10 tablet 08/21/19 oxyCODONE [Roxicodone] 5 - 10 mg PO Q6H PRN #14 tablet 08/21/19 - Allergies Allergies/Adverse Reactions: Allergies Allergy/AdvReac Type Severity Reaction Status Date / Time Penicillins Allergy Hives Verified 09/25/19 12:20 - Social History Does the pt smoke?: No Smoking Status: Never smoker Does the pt drink ETOH?: No Does the pt have substance abuse?: No - Immunizations Immunizations: TDAP current <10years - POLST Patient has POLST: No PD ED PE NORMAL - Vitals Vital signs reviewed: Yes - General General: Alert and oriented X 3 - HEENT HEENT: Other (Tonsils are edematous, erythematous. Uvula is midline. There are no oral lesions.) - Neck Neck: Supple, no meningeal sign - Cardiac Cardiac: RRR - Respiratory Respiratory: No respiratory distress, Clear bilaterally - Abdomen Abdomen: Soft, Non distended - Derm Derm: No rash - Extremities Extremities: No deformity - Neuro Neuro: Alert and oriented X 3 - Psych Psych: Normal mood Results - Vitals Vitals: Vital Signs - 24 hr 09/25/19 12:20 Temperature 36.7 C Heart Rate 81 Respiratory 18 Rate Blood Pressure 142/78 H O2 Saturation 100 Oxygen O2 Source Room air - Labs Labs: Laboratory Tests 09/25/19 12:30 Group A Strep Rapid Negative PD MEDICAL DECISION MAKING - ED course ED course: Patient presents with a sore throat, cough, and fever. Her tonsils are edematous, and she has had fever and she has anterior cervical lymphadenopathy, however she also has a cough, and her son has a viral illness. Strep swab was sent and is negative, I discussed that viral illness is more likely, so we will not treat empirically, we will wait for the culture results. I discussed supportive care, and follow-up. Also discussed return precautions. Flu is possible, however patient is healthy,her illnesses started 3 days ago, and there seems to be little benefit to testing at this time as this would not change her management. Patient very well-appearing, and was discharged home in good condition Departure - Departure Disposition: 01 Home, Self Care Clinical Impression: Pharyngitis Qualifiers: Pharyngitis/tonsillitis etiology: unspecified etiology Qualified Code(s): J02.9 - Acute pharyngitis, unspecified Condition: Good Instructions: ED Pharyngitis Viral Follow-Up: AHS[facility] TEJEDA [Primary Care Provider] - (If you are having persistent symptoms) Comments: Your strep test was negative today, we will culture it and if it is positive you will get a call to start antibiotics. I think this is likely a viral Illness, get plenty of rest, drink fluids, you may take Tylenol ibuprofen for fever and discomfort. If you are having significant worsening return to the emergency department, otherwise follow-up with your primary care provider as needed
[2019-09-25 12:56] LABS: RAPID STREP SCREEN Negative (Negative)
[2019-09-25] MEDS ORDERED: CHERRY SYRUP 10 ML UDC PO ONE (13:19)
[2019-09-25] MEDS ORDERED: DEXAMETHASONE 10 MG/ML VIAL PO STA (13:19)
== END 2019-09-25 13:37 | disposition home or self-care (01) ==
LOC: ED 12:15
DX: J02.9 Acute pharyngitis, unspecified (principal)
CPT/HCPCS: 87070; 87077; 87430; 99283; A9270